=== PATIENT | female | born 1990 | race Caucasian/White ===

== ENCOUNTER → 2021-07-02 | Day surgery (SDC) | payer OTHER ==
[~2021-07-02] MED LIST: COLACE 100MG C100 MG PO; DOCUSATE SODIU250 MG PO; HYDROCODONE-AC1 EACH PO; IBUPROFEN600 MG PO; KEFLEX CAP 500500 MG PO; NORCO 5-325 TA1 EACH PO
[2021-07-02 07:35] LABS: RED BLOOD COUNT 4.51 M/UL (4.00-5.10); WHITE BLOOD COUNT 6.6 K/UL (4.5-11.0)
== END | disposition home or self-care (01) ==
LOC: OR 06:38
PROVIDERS: Obstetrics & Gynecology
DX: N72 Inflammatory disease of cervix uteri (principal); N80.0 Endometriosis of uterus; M62.89 Other specified disorders of muscle; N39.46 Mixed incontinence; N83.209 Unspecified ovarian cyst, unspecified side; Z87.891 Personal history of nicotine dependence; Z20.822 Contact with and (suspected) exposure to COVID-19; Z90.79 Acquired absence of other genital organ(s)
CPT/HCPCS: 36415; 81001; 84703; 85025; C1769; C1771; J0690; J1100; J1170; J1885; J2001; J2250; J2405; J2704; J2710; J3010; J7120; U0002

== ENCOUNTER 2022-03-26 12:34 | Emergency (ER) | payer OTHER ==
[2022-03-26 13:30] LABS: HEMOGLOBIN 13.3 gm/dl (12.3-15.3); RED BLOOD COUNT 4.42 M/UL (4.00-5.10)
[2022-03-26 13:53] LABS: BUN/CREATININE RATIO 16 (0-10)
== END 2022-03-26 14:58 | disposition admitted as inpatient to this hospital (09) ==
LOC: ER1 12:34 → CDU 14:58 → ER1 15:12 → CDU 15:12
PROVIDERS: Physician Assistant; Surgery
PROC: 0FT44ZZ Resection of Gallbladder, Percutaneous Endoscopic Approach (ICD-10-PCS; principal; 2022-03-26 16:12)
DX: K81.1 Chronic cholecystitis (principal); R73.03 Prediabetes
CPT/HCPCS: 80053; 85025; 96374; 99285; J0690; J1100; J1885; J2001; J2250; J2270; J2405; J2704; J2710; J3010

== ENCOUNTER → 2022-03-26 | Outpatient (CLI) | payer OTHER | LOC: EXRD 07:57 → KOH-I 04-01 08:30 → EXRD 04-26 08:00 | DX: R10.11 Right upper quadrant pain (principal); K80.20 Calculus of gallbladder without cholecystitis without obstruction | CPT/HCPCS: 76705; J1170; J2405 ==

== ENCOUNTER 2022-05-12 13:59 | Emergency (ER) | payer OTHER ==
[2022-05-12 14:56] LABS: HEMOGLOBIN 15.4 gm/dl (12.3-15.3); RED BLOOD COUNT 5.1 M/UL (4.00-5.10); WHITE BLOOD COUNT 8.8 K/UL (4.5-11.0)
[2022-05-12 15:35] LABS: BUN/CREATININE RATIO 23 (0-10)
== END 2022-05-12 17:02 | disposition home or self-care (01) ==
LOC: ER1 13:59
PROVIDERS: Physician Assistant
DX: G43.909 Migraine, unspecified, not intractable, without status migrainosus (principal); E11.9 Type 2 diabetes mellitus without complications; Z20.822 Contact with and (suspected) exposure to COVID-19
CPT/HCPCS: 70450; 80053; 85025; 96374; 96375; 99284; J1200; J1885; J2765; U0002